=== PATIENT | male | born 1975 | race Caucasian/White ===

== ENCOUNTER 2020-05-19 15:02 | Outpatient (REF) | payer OTHER, SELFPAY ==
[2020-05-19 16:41] LABS: Glucose Urine UA NEG (NEG); Leukocyte Esterase Urine NEG (NEG); Nitrite Urine NEG (NEG); PH 6.5 (5.0-8.0); Specific Gravity - Urine 1.015 (1.005-1.025); Urine Blood NEG (NEG); Urine Ketones NEG (NEG); Urine Protein NEG (NEG-TRACE)
[2020-05-19 16:51] LABS: Appearance Urine CLEAR; Color Urine YELLOW
[2020-05-19 17:06] LABS: Alanine Aminotransferase 24 U/L (0-40); Albumin Level 4.5 g/dL (3.5-5.0); Alkaline Phosphatase 73 U/L (39-117); Anion Gap 14 (12-20); Aspartate Amino Transferase 20 U/L (5-37); Bilirubin Total 0.7 mg/dL (0.0-1.0); Blood Urea Nitrogen 12 mg/dL (9-16); Calcium 8.8 mg/dL (8.4-10.2); Carbon Dioxide 28 mmol/L (22-29); Chloride 102 mmol/L (96-108); Cholesterol 224 mg/dL; Estimated Glomerular Filt Rate > 60; Glucose Fasting 81 mg/dL (60-99); HDL Cholesterol 73 mg/dL; LDL Cholesterol Calculated 137 mg/dl; Potassium 3.9 mmol/l (3.3-5.1); Sodium 140 mmol/L (135-145); Total Protein 7.3 g/dL (6.5-8.0); Triglycerides 71 mg/dL
[2020-05-19 17:27] LABS: Thyroid Stimulating Hormone 0.95 mIU/mL (0.32-4.0)
[2020-05-20 05:33] LABS: Estimated Average Glucose 97 mg/dL
== END 2020-05-19 15:03 | disposition home or self-care (01) ==
LOC: HO.HMGCLDS 15:02
PROVIDERS: PCP Internal Medicine; Visit Provider Internal Medicine
DX: R73.9 Hyperglycemia, unspecified (principal); Z00.00 Encounter for general adult medical examination without abnormal findings; F41.9 Anxiety disorder, unspecified
CPT/HCPCS: 80053; 80061; 81003; 83036; 84443

== ENCOUNTER 2020-07-28 13:34 | Outpatient (REF) | payer OTHER, SELFPAY | END 2020-07-28 13:35 | disposition home or self-care (01) | LOC: HO.LAB 13:34 | PROVIDERS: PCP Internal Medicine; Visit Provider Internal Medicine | DX: Z20.828 Contact with and (suspected) exposure to other viral communicable diseases (principal) | CPT/HCPCS: C9803; U0003 ==

== ENCOUNTER 2021-05-18 07:34 | Outpatient (REF) | payer OTHER, SELFPAY ==
[2021-05-18 11:34] LABS: Appearance Urine CLEAR; Color Urine YELLOW; Glucose Urine UA NEG (NEG); Leukocyte Esterase Urine NEG (NEG); Nitrite Urine NEG (NEG); Specific Gravity - Urine 1.015 (1.005-1.025); Urine Blood NEG (NEG); Urine Ketones NEG (NEG); Urine Protein NEG (NEG-TRACE)
[2021-05-18 11:43] LABS: RBC Urine 0 /HPF (0); WBC Urine 0 /HPF (0-4)
[2021-05-18 11:44] LABS: Amorphous Sediment Urine 1+ /LPF
[2021-05-18 11:47] LABS: Alanine Aminotransferase 26 U/L (0-40); Albumin Level 4.1 g/dL (3.5-5.0); Alkaline Phosphatase 86 U/L (39-117); Anion Gap 9 (12-20); Aspartate Amino Transferase 20 U/L (5-37); Bilirubin Total 0.4 mg/dL (0.0-1.0); Blood Urea Nitrogen 19 mg/dL (9-16); Calcium 9.3 mg/dL (8.4-10.2); Carbon Dioxide 27 mmol/L (22-29); Chloride 110 mmol/L (96-108); Cholesterol 210 mg/dL; Estimated Glomerular Filt Rate > 60; Glucose Fasting 117 mg/dL (60-99); HDL Cholesterol 61 mg/dL; LDL Cholesterol Calculated 125 mg/dl; Potassium 4.3 mmol/L (3.3-5.1); Sodium 142 mmol/L (135-145); Total Protein 6.8 g/dL (6.5-8.0); Triglycerides 122 mg/dL
== END 2021-05-18 07:35 | disposition home or self-care (01) ==
LOC: HO.HMGCLDS 07:34
PROVIDERS: PCP Internal Medicine; Visit Provider Internal Medicine
DX: Z00.00 Encounter for general adult medical examination without abnormal findings (principal); E78.5 Hyperlipidemia, unspecified
CPT/HCPCS: 36415; 80053; 80061; 81001

== ENCOUNTER 2021-11-14 14:33 | Outpatient (REF) | payer OTHER, SELFPAY ==
[2021-11-14 17:08] LABS: Alanine Aminotransferase 27 U/L (0-40); Albumin Level 4.2 g/dL (3.5-5.0); Alkaline Phosphatase 86 U/L (39-117); Anion Gap 13 (12-20); Aspartate Amino Transferase 24 U/L (5-37); Bilirubin Total 0.9 mg/dL (0.0-1.0); Blood Urea Nitrogen 11 mg/dL (9-16); Calcium 9.3 mg/dL (8.4-10.2); Carbon Dioxide 27 mmol/L (22-29); Chloride 106 mmol/L (96-108); Estimated Glomerular Filt Rate > 60; Glucose Fasting 80 mg/dL (60-99); Potassium 3.8 mmol/L (3.3-5.1); Sodium 142 mmol/L (135-145); Total Protein 7.1 g/dL (6.5-8.0)
[2021-11-14 17:17] LABS: Estimated Average Glucose 100 mg/dL; Hemoglobin A1c % 5.1 %
== END 2021-11-14 14:34 | disposition home or self-care (01) ==
LOC: HO.HMGCLDS 14:33
PROVIDERS: PCP Internal Medicine; Visit Provider Internal Medicine
DX: Z00.00 Encounter for general adult medical examination without abnormal findings (principal); R73.9 Hyperglycemia, unspecified
CPT/HCPCS: 36415; 80053; 83036

== ENCOUNTER 2022-05-28 14:37 | Outpatient (REF) | payer OTHER, SELFPAY ==
[2022-05-28 16:34] LABS: Hematocrit 45.1 % (42.0-52.0); Hemoglobin 15.5 g/dl (14.0-18.0); Mean Corpuscular HGB Conc 34.4 g/dl (31.0-36.0); Mean Corpuscular Hemoglobin 30.4 pg (27.0-33.0); Mean Corpuscular Volume 88.4 fL (80.0-98.0); Mean Platelet Volume 9.8 fL (9.4-12.4); Platelet Count 231 X10*3/uL (160-400); Red Cell Distribution Width 12.8 % (11.0-16.0)
[2022-05-28 16:40] LABS: Estimated Average Glucose 105 mg/dL; Hemoglobin A1c % 5.3 %
[2022-05-28 16:43] LABS: Alanine Aminotransferase 31 U/L (0-40); Albumin Level 4.4 g/dL (3.5-5.0); Alkaline Phosphatase 99 U/L (39-117); Anion Gap 12 (12-20); Aspartate Amino Transferase 24 U/L (5-37); Bilirubin Total 0.6 mg/dL (0.0-1.0); Blood Urea Nitrogen 12 mg/dL (9-16); Calcium 9.3 mg/dL (8.4-10.2); Carbon Dioxide 28 mmol/L (22-29); Chloride 103 mmol/L (96-108); Cholesterol 229 mg/dL; Estimated Glomerular Filt Rate > 60; Glucose Fasting 91 mg/dL (60-99); HDL Cholesterol 74 mg/dL; LDL Cholesterol Calculated 135 mg/dl; Potassium 3.8 mmol/L (3.3-5.1); Sodium 139 mmol/L (135-145); Total Protein 7.3 g/dL (6.5-8.0); Triglycerides 104 mg/dL
== END 2022-05-28 14:38 | disposition home or self-care (01) ==
LOC: HO.HMGCLDS 14:37
PROVIDERS: PCP Internal Medicine; Visit Provider Internal Medicine
DX: E78.5 Hyperlipidemia, unspecified (principal); R73.9 Hyperglycemia, unspecified
CPT/HCPCS: 36415; 80053; 80061; 83036; 85027

== ENCOUNTER 2022-08-24 08:18 | Day surgery (SDC) | payer OTHER, SELFPAY ==
--- NOTE | 2022-08-23 10:59 | HO.ANESPROP2 ---
Documented by User: Karyna Young NP 08/23/22 11:00 HPI - Anesthesia Eval Consult details Narrative: 46yo M for Colonoscopy PMFSH Active Problems Active Problems: All Active Problems (Updated 04/18/22 @ 12:43 by Giulia Latham MD) Congenital hypertrophy of retinal pigment epithelium (Acute) FHx: colonic polyps (Acute) Hyperglycemia (Acute) Hyperlipemia (Acute) Annual physical exam (Acute) Past Medical History Medical History Annual physical exam Anxiety Hyperglycemia Hyperlipemia Family History Family History Father Factor V Leiden Stroke Mother CVD (cardiovascular disease) Paternal Uncle Type 2 diabetes mellitus Surgical History Surgical History No pertinent past surgical history Social History Social History 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, 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, 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 Tobacco Use Status: Never used Tobacco e-Cigarette/Vaping Use: Never Used Use of substances other than those prescribed or required for medical reasons: No Are you DNR?: No Advance Directives: No Advance Directives Information Provided: Yes Current occupational status: employed Cognitive needs: No Hearing needs: No Vision needs: Yes Meds Allergies Allergy/AdvReac Type Severity Reaction Status Date / Time amoxicillin [Augmentin] Allergy Unknown hives Verified 06/01/22 11:32 clavulanic acid [Augmentin] Allergy Unknown hives Verified 06/01/22 11:32 oxycodone Allergy Unknown hives Verified 06/01/22 11:32 Exam Exam Date and Time: August 23, 2022 1059 Pertinent Lab Results Pertinent Lab Results: Laboratory Tests 05/28/22 05/28/22 14:44 14:44 WBC 6.0 Hgb 15.5 Hct 45.1 Plt Count 231 Sodium 139 Potassium 3.8 Chloride 103 Carbon Dioxide 28 BUN 12 Creatinine 0.91 Assessment and Plan Assessment Anesthesia Assessment: Chart Reviewed Documented by User: Priyanka Caba MD 08/24/22 09:57 PMFSH Past Medical History Medical History Annual physical exam Anxiety Hyperglycemia Hyperlipemia Family History Family History Father Factor V Leiden Stroke Mother CVD (cardiovascular disease) Paternal Uncle Type 2 diabetes mellitus Family history of problems with anesthesia: No Surgical History Surgical History No pertinent past surgical history History of Problems with Anesthesia: No Social History Social History 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, 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, 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 Tobacco Use Status: Never used Tobacco e-Cigarette/Vaping Use: Never Used Use of substances other than those prescribed or required for medical reasons: No Are you DNR?: No Advance Directives: No Advance Directives Information Provided: Yes Current occupational status: employed Cognitive needs: No Hearing needs: No Vision needs: Yes Meds Allergies Allergy/AdvReac Type Severity Reaction Status Date / Time amoxicillin [Augmentin] Allergy Unknown hives Verified 06/01/22 11:32 clavulanic acid [Augmentin] Allergy Unknown hives Verified 06/01/22 11:32 oxycodone Allergy Unknown hives Verified 06/01/22 11:32 Exam Airway Mallampati Class: II TM Dist: >3cm Heart: rrr Lungs: cta Assessment and Plan Assessment Anesthesia Assessment: Anesthesia Plan Discussed Final Anesthetic Review Family History of Problems with Anesthesia: No History of Problems with Anesthesia: No NPO: Yes ASA Class: II Final Preanesthetic Review: No Changes in Pt Med Stat, Meds/Allgs Chart Reviewed, Consent Obtained/Reviewed and Anes Risks/Benef Reviewed Patient Risk: Low Procedure Risk: Low Anesthetic Plan Anesthetic Plan: MAC: and Agree w/ Assess. and Plan Disposition: Standard PACU
[2022-08-24 08:49] VITALS: BP 144/88; PULSE 58; RESP 16; TEMP 36.7; O2SAT 97; BMI 32.5
--- NOTE | 2022-08-24 09:00 | MHC.SHP ---
Pre-Procedural Eval Section A Date of Service: 08/24/22 The patient is an INPATIENT: No The History & Physical has been completed within 30 days and I have reviewed it.: No Section B Chief Complaint: Family history of colonic polyps,screening Details of Present Illness: screening Relevant Family History (Specify if Yes): Yes Relevant Social History: None Present Medications: see Short Stay Collaborative assessment Medical History: Significant History (Anxiety Hyperglycemia Hyperlipemia) History of Previous Operations: No relevant previous surgery Allergies: Allergies Allergy/AdvReac Type Severity Reaction Status Date / Time amoxicillin [Augmentin] Allergy Unknown hives Verified 06/01/22 11:32 clavulanic acid [Augmentin] Allergy Unknown hives Verified 06/01/22 11:32 oxycodone Allergy Unknown hives Verified 06/01/22 11:32 Review of Systems Sugical H&P ROS: Negative: Constitution, Cardiovascular, Respiratory and Gastrointestinal Exam Surgical H&P Exam: Normal: Heart, Normal: Lungs, Normal: Extremities and Normal: Abdomen Plan Diagnosis/Plan: Unchanged I have reviewed the history and physical and performed a pertinent physical examination on my patient. No changes have occurred unless specified. Time Spent With Patient Time: Total time managing care of this patient today ____ minutes.
[2022-08-24] MEDS: Lactated Ringers 1,000 ML 100 ML IVCONT (09:19)
--- NOTE | 2022-08-24 09:43 | P.BOP_ITS ---
Brief Operative Note Date of Service: 08/24/22 Pre-op diagnosis: Colon cancer screening, family history of colon polyps (Mom in her 50's) Post-op diagnosis: other (Diverticulosis, hemorrhoids) Procedure: COLONOSCOPY TILL CECUM Surgeon: Yasir Light MD Anesthesia: MAC Was an Software Systems Analyst used for this Procedure?: Yes Software Systems Analyst: Daisha Hurt Estimated blood loss (mL): 0 Pathology: none sent Condition: stable Disposition: PACU
--- NOTE | 2022-08-24 09:43 | W.PM.OPN ---
Operative Note Operative Note Date of Service: 08/24/22 Narrative: Pre-op diagnosis: Colon cancer screening, family history of colon polyps (Mom in her 50's) Post-op diagnosis:?other (Diverticulosis, hemorrhoids) Surgeon: Yasir Light MD Anesthesia:?MAC COLONOSCOPY TILL CECUM Consent: Indications for the procedure and potential complications of bleeding, perforation, reaction to medications and missed diagnosis were discussed with the patient and informed consent was obtained. Instrument: Olympus PCF H 190 L variable stiffness pediatric colonoscope Monitoring: Vital signs and clinical assessment, intermittent blood pressure monitoring, continuous EKG monitoring, Pulse oximetry and Carbon Dioxide monitoring were done throughout the procedure. Colon withdrawl time was 11 minutes. Procedure: The patient was placed in the left lateral decubitis position and pre-procedure medications were administered. After a digital rectal examination of the ano-rectum, the video colonoscope was inserted into the rectum and advanced through the colon to the cecum. The colonoscope was slowly withdrawn in a retrograde panoramic fashion and the colon mucosa was carefully examined including a retroflexed view of the rectum. Findings and interventions are described below. Procedure Difficulty: Colon was long and there was some loop formation. Pt was placed in the supine position and LLQ pressure was applied to intubate the cecum Findings: Terminal Ileum: Not evaluated Cecum: Normal Ascending Colon: Normal Transverse Colon: Normal Descending Colon: Normal Sigmoid Colon: Moderate diverticulosis Rectum: Normal Ano-rectum: Moderate internal hemorrhoids Colon preparation: Excellent Impression and Post Procedure Diagnosis: Colonoscopy Findings: No polyps were detected Moderate diverticulosis seen in the sigmoid colon Moderate hemorrhoids on retroflexed exam. Plan: Patient has an appointment on 09/05/22 in the [facility] with Dr Latham. Repeat Colonoscopy in 5 yrs (due to fammily hx of colon polyps) Above findings were reviewed with the patient and diverticulosis handout was given in the discharge area
[2022-08-24 10:20] VITALS: BP 110/73; PULSE 56; RESP 17; TEMP 36.9; O2SAT 98
[2022-08-24 10:35] VITALS: BP 118/76; PULSE 69; RESP 18; TEMP 36.9; O2SAT 96
== END 2022-08-24 11:38 | disposition home or self-care (01) ==
PROVIDERS: PCP Internal Medicine; Visit Provider Internal Medicine Gastroenterology
PROC: 0DJD8ZZ Inspection of Lower Intestinal Tract, Via Natural or Artificial Opening Endoscopic (ICD-10-PCS; CPT 45378; principal; 2022-08-24 09:30)
DX: Z12.11 Encounter for screening for malignant neoplasm of colon (principal); Z83.71 Family history of colonic polyps; K57.30 Diverticulosis of large intestine without perforation or abscess without bleeding; K64.8 Other hemorrhoids; R73.9 Hyperglycemia, unspecified; E78.5 Hyperlipidemia, unspecified; Q14.1 Congenital malformation of retina; F41.1 Generalized anxiety disorder; Z88.1 Allergy status to other antibiotic agents; Z88.8 Allergy status to other drugs, medicaments and biological substances
CPT/HCPCS: 45378; J2250

== ENCOUNTER 2023-02-15 12:41 | Outpatient (AMB) | payer OTHER, SELFPAY ==
--- NOTE | 2023-02-15 13:00 | MHC.PC.OV ---
Vital Signs 02/15/23 13:04 Height 6 ft 3 in Weight 270 lb BMI 33.7 BP 124/78 Blood Pressure Location Lt brachial Position Sitting Pulse 60 Pulse Source Pulse Oximeter Pulse Oximetry (%) 98 Oxygen Delivery Method Room Air Intake Visit Reasons: thumb on right hand swollen Intake Note: Pt is ere today for a sick visit. Pt c/o R thumb pain and swelling for last few months. Pt states that the pain got worst over the summer. Pt also states that he had R shoulder pain and he is not sure if that is connected. Allergies amoxicillin [Augmentin] Allergy (Unknown, Verified 02/15/23 13:10) hives clavulanic acid [Augmentin] Allergy (Unknown, Verified 02/15/23 13:10) hives oxycodone Allergy (Unknown, Verified 02/15/23 13:10) hives Medication List - Last Reconciled 02/15/23 by Reshma Camarena MD ketoconazole 2% 1 appl topical DAILY meloxicam 15 mg PO DAILY Tobacco use date assessed: 02/15/23 Dental Screening Dental Screen Date: 02/15/23 Did you have a dental visit in the last 12 months?: Yes Did you have a dental problem in the last 6 months where you did not have access to dental care?: No Was dental information given to patient?: Patient has dentist HPI thumb on right hand swollen HPI Details Pt c/o right wrist and base of right thumb pain worse in the morning also at night. The pain got worse in the summer since patient start playing golf 3 times a week. Patient also complains of chronic right shoulder pain on and off since he had injured it in high school. The pain is worse when patient is trying to reach overhead and playing golf. 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 How often do you have a drink containing alcohol?: 2-3 times a week 2. How many drinks containing alcohol do you have on a typical day when you are drinking?: 1 or 2 3. How often do you have six or more drinks on one occasion?: Never Total Score: 3 SILVER-7 AMB Questionnaire SILVER-7 Date SILVER - 7 assessed: 11/27/21 Source: Developed by Drs. Collins Saldaña, Marya Ascencio, Rudy Dowd and colleagues, with an educational ximena from [employer]. Review of Systems Const All systems reviewed & are unremarkable except as noted in HPI and below Reports no additional complaints ENT Reports no additional complaints Card Reports no additional complaints Physical exam (Primary Care) Vital Signs: Last Vital Signs Pulse 60 02/15/23 13:04 BP 124/78 02/15/23 13:04 Pulse Ox 98 02/15/23 13:04 Oxygen Delivery Method Room Air 02/15/23 13:04 BMI result Body Mass Index 33.7 Tobacco/Smoking Status: Tobacco use Status Tobacco use date assessed 02/15/23 02/15/23 13:12 Patient Tobacco Use Status Never used Tobacco 02/15/23 13:12 e-Cigarette/Vaping Use Never Used 02/15/23 13:00 Thrive Assessment: Date of Thrive Assessment Date Thrive assessed 11/27/21 02/15/23 13:00 Const General: no acute distress Resp Effort & Inspection: normal respiratory effort Auscultation: clear to auscultation bilaterally Cardio Rhythm: regular rhythm Heart sounds: S1 normal heart sound present and S2 normal heart sound present Extrem Other: Decreased range of motion of the right shoulder and right wrist, there is soft tissue swelling at the base of right thumb and tenderness over PIP and MCP joint Assessment and Plan Assessment & Plan (1) Shoulder pain, right: Code(s): M25.511 - Pain in right shoulder Plan: For chronic right shoulder pain x-ray will be obtained patient will be referred to physical therapy and orthopedic surgeon (2) Pain of right thumb: Code(s): M79.644 - Pain in right finger(s) Plan: For right thumb and wrist pain x-ray will be obtained meloxicam 15 mg daily for 10 days is prescribed and patient was giving a wrist splint to wear at night. If his symptoms persist he will be referred to ortho for cortisone injection Orders: Orders XR shoulder RT min 2V Today M25.511 - Pain in right shoulder, M79.644 - Pain in right finger(s) PT Evaluation and Treatment Today M25.511 - Pain in right shoulder XR wrist RT 2V Today M25.531 - Pain in right wrist Referrals Orthopedics Referral M25.511 - Pain in right shoulder, M79.644 - Pain in right finger(s) Medications: New meloxicam 15 mg PO DAILY 14 tabs 0RF Coding Level of Care Code Est Pt Level 3 (99073) Diagnoses Shoulder pain, right M25.511 Pain of right thumb M79.644
[2023-02-15 13:04] VITALS: BP 124/78; PULSE 60; O2SAT 98; BMI 33.7
== END 2023-02-15 13:54 | disposition home or self-care (01) ==
PROVIDERS: PCP Internal Medicine; Visit Provider Internal Medicine
DX: M25.511 Pain in right shoulder (principal); M79.644 Pain in right finger(s)
CPT/HCPCS: 99213

== ENCOUNTER 2023-02-15 13:45 | Outpatient (REF) | payer OTHER, SELFPAY ==
--- NOTE | ~2023-02-15 | XR_ITS ---
EXAMINATION: XR HAND, RIGHT CLINICAL INFORMATION: Pain. COMPARISON: None available. TECHNIQUE: PA, lateral, and oblique views of the right hand. FINDINGS: No evidence of acute fractures or subluxation. Minimal joint space narrowing and subcortical sclerosis of the first carpometacarpal space. No erosions or chondrocalcinosis. No unexpected radiopaque foreign bodies. XR/XR hand RT min 3V IMPRESSION: 1. No acute fractures or subluxation. 2. Minimal degenerative osteoarthritis of the first carpometacarpal space.
--- NOTE | ~2023-02-15 | XR_ITS ---
EXAMINATION: XR SHOULDER, RIGHT CLINICAL INFORMATION: Pain in right shoulder COMPARISON: None available. TECHNIQUE: AP external rotation, Grashey, scapular Y, and axillary views of the right shoulder. FINDINGS: The bones and soft tissues are normal. No fracture. Glenohumeral and acromioclavicular alignment is anatomic with normal joint space. No abnormal soft tissue calcifications. XR/XR shoulder RT min 2V IMPRESSION: No bony abnormality.
== END 2023-02-15 13:46 | disposition home or self-care (01) ==
LOC: HO.HMGCX 13:45
PROVIDERS: PCP Internal Medicine; Visit Provider Internal Medicine
DX: M25.511 Pain in right shoulder (principal); M79.644 Pain in right finger(s); M25.531 Pain in right wrist
CPT/HCPCS: 73030; 73130

== ENCOUNTER 2023-03-18 10:00 | Outpatient (RCR) | payer OTHER, SELFPAY ==
--- NOTE | 2023-03-11 15:08 | MHC.PT.EP ---
[facility] [place] Office [place] [facility] [place] Office [address] Jayshree Ortega [address] [phone] F: [phone] F: [phone] F: [phone] F: [phone] Physical Therapy Plan of Care Date of Evaluation: Date of Surgery: Diagnosis: Pain in R shoulder Assessment: 47 y/o R-hand dominant male referred to PT with pain in R shoulder. S/s consistent with RTC tendonpathy and painful arc resulting in pain and difficulty with reaching overhead, grooming, throwing a ball, playing basketball, golf, and holding objects in R hand. 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 Recommend PT 2x/ week for 5 weeks to address impairments, implement HEP, and optimize functional mobility. ?whether he would benefit from OT consult d/t wrist/ thumb pain and ?CMC arthritis). 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 Manual therapy to restore motion and function. Therapeutic exercise to improve strength and flexibility. Neuromuscular re-education for posture and balance. Therapeutic activities to return to functional activities of daily living. Electronically signed by: Leilani Pritchett PT Please sign and return to therapist. Thank you for your referral.
--- NOTE | 2023-04-25 14:47 | MHC.PT.DC ---
[facility] [place] Office [place] Office [place] Office [address] Jayshree Ortega [address] [phone] F: [phone] F: [phone] F: [phone] F: [phone] Physical Therapy Discharge Report Diagnosis: Pain in R shoulder Date of Surgery: Date of Evaluation: 03/11/23 Date of Discharge: Treatments to Date: 2 Cancellations to Date: 0 No Shows to Date: 0 Discharge Status: Independent with HEP Discharge Summary: Pt will f/u with ortho and look into OT for his wrist pain. He is I with shoulder HEP and no further questions at this time. Electronically signed by: Leilani Pritchett PT Please sign and return to therapist. Thank you for your referral.
== END 2023-04-25 14:48 | disposition home or self-care (01) ==
LOC: HO.PTCHIC 10:00
PROVIDERS: PCP Internal Medicine; Visit Provider Internal Medicine
DX: M25.511 Pain in right shoulder (principal)
CPT/HCPCS: 97110; 97161

== ENCOUNTER 2023-04-02 14:52 | Outpatient (AMB) | payer OTHER, SELFPAY ==
[2023-04-02 15:03] VITALS: BMI 33.7
--- NOTE | 2023-04-02 15:03 | MHC.OFFVIS ---
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 States his pain is by his CMC joint. States pain started about 6-8 months ago . States it is worse in the morning. Feels tightness in his index, middle and ring finger. At times he has increase of numbness at night time. Reports he has trouble with gripping, punching and twisting of wrist. Also mentioned he golfs 4x a week. Seen with his PCP who Rx'd a thumb spica brace which provides temporary relief. 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 He complains of pain at the base of his thumb and his wrist as well as radial sided wrist pain, onset ~7 months ago. He complains of pain with pinching, gripping, and twisting activities, and he says this is worse in the mornings. He also complains of some tightness in his index, middle, and ring fingers, and occasional numbness which is worse at night. He denies any issues with his small finger He golfs 4x weekly and has been wearing a thumb splint that his PCP gave him. 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 Cognitive needs: No Hearing needs: No Vision needs: Yes Review of Systems Const All systems reviewed & are unremarkable except as noted in HPI and below Physical Exam Vital Signs: BMI result Body Mass Index 33.7 Const General: cooperative, healthy appearing and no acute distress Orientation/consciousness: patient oriented x3 HEENT Head: Yes normocephalic and Yes atraumatic Eyes EOM: EOMs intact bilaterally Resp Effort & Inspection: normal respiratory effort and able to speak in complete sentences Cardio Jugular venous distension: no JVD Skin General skin exam: turgor normal Rashes: no rashes Neuro General: patient oriented x3 Extrem Other: Evaluation of Right Upper Extremity: The patient is alert, oriented, and in no acute distress Neuro: Median, Ulnar, Radial nerves motor and sensory intact and sensation is normal to the tips of all digits Vascular: Cap refill brisk ROM: He can make a fist and extend all his digits No locking or catching Skin: No lacerations or abrasions. General: No Ecchymosis. No Erythema or evidence of infection. Tender over the basal joint Tender in line with the 1st dorsal compartment tendons Positive Jim test on the right Negative Jim test on the left Radiographs: 3 views of the right hand from 02/15/23 were reviewed by me today in clinic. They show no fractures or dislocations. He has some early basal joint arthritis. Psych Appearance: grossly normal Affect: normal affect Attitude: cooperative Office Procedures Fracture Care Details: No fracture, injection Fracture Billing Code: Fracture Billing Code Results Reviewed Results Reviewed: 04/02/23 15:27 Lidocaine HCl 1 % [Xylocaine 1 %] 2 ml .ROUTE .STK-MED ONE dexAMETHasone sod phosphate [Decadron] 4 mg .ROUTE .STK-MED ONE Assessment & Plan Assessment & Plan (1) Osteoarthritis of carpometacarpal joint of right thumb: Code(s): M18.11 - Unilateral primary osteoarthritis of first carpometacarpal joint, right hand (2) De Quervain's tenosynovitis, right: Code(s): M65.4 - Radial styloid tenosynovitis [de Quervain] Plan Assessment & Plan: 1. Right De Quervain's Tenosynovitis Positive Jim test 2. Right Basal joint osteoarthritis I educated him about these conditions It is unclear if his primary pain generator is De Quervain's or his Basal joint OA I discussed operative and non-operative treatment options I recommend a steroid injection today to see if this alleviates his pain, and the patient is in agreement I discussed activity modification, he is to limit or avoid any heavy or repetitive pinching or gripping activities He was fitted for a comfort cool brace to wear with daily activity He is an avid golfer and goes 3-4x weekly. He has been icing after golfing and I recommend he continue this if this gives him relief Injection #1: The risks and benefits of a steroid injection including but not limited to risk of damage to blood vessels, nerves, tendons, infection, skin bleaching, failure to improve symptoms, increased pain, and possible need for further injections or other intervention were discussed with the patient and the patient wishes to proceed with the steroid injection. Once consent was obtained, I sterilely prepped the area over the 1st dorsal compartment of the right thumb. I then injected the 1st dorsal compartment with a combination of 1 mL of dexamethasone (4mg/ml), and 1% lidocaine. The patient tolerated the procedure well with no complications and reports having almost complete relief of his symptoms following this injection If the patient continues to have pain 6-8 weeks following this injection, they may call to schedule appointment to discuss alternative treatment options He can follow up prn. If he continues to have pain he may benefit from a basal joint steroid injection, which we may discuss at his next appointment Scribed for Summer Santiago MD by Jose Roberto Godinez, medical service technician, on 04/02/23 at 3:30 PM, EST. Coding Level of Care Code New Pt Level 3 (83159) Diagnoses Osteoarthritis of carpometacarpal joint of right thumb M18.11 De Quervain's tenosynovitis, right M65.4 CPT Codes Fracture Care - Fracture Billing Code: Fracture Billing Code ([id number])
== END 2023-04-02 15:52 | disposition home or self-care (01) ==
PROVIDERS: PCP Internal Medicine; Visit Provider Orthopaedic Surgery
DX: M18.11 Unilateral primary osteoarthritis of first carpometacarpal joint, right hand (principal); M65.4 Radial styloid tenosynovitis [de Quervain]
CPT/HCPCS: 20550; 99204

== ENCOUNTER → 2023-04-02 14:52 | Outpatient (BNVA) | payer OTHER, SELFPAY | PROVIDERS: PCP Internal Medicine; Visit Provider Orthopaedic Surgery | DX: M65.4 Radial styloid tenosynovitis [de Quervain] (principal); M18.11 Unilateral primary osteoarthritis of first carpometacarpal joint, right hand | CPT/HCPCS: 20550; J1100 ==

== ENCOUNTER 2023-05-23 15:01 | Outpatient (REF) | payer OTHER, SELFPAY ==
[2023-05-23 16:29] LABS: Alanine Aminotransferase 19 U/L (0-40); Albumin Level 4.2 g/dL (3.5-5.0); Alkaline Phosphatase 130 U/L (39-117); Anion Gap 13 (12-20); Aspartate Amino Transferase 19 U/L (5-37); Bilirubin Total 0.5 mg/dL (0.0-1.0); Blood Urea Nitrogen 13 mg/dL (9-16); Calcium 9.2 mg/dL (8.4-10.2); Carbon Dioxide 25 mmol/L (22-29); Chloride 104 mmol/L (96-108); Cholesterol 191 mg/dL (<200); Estimated Glomerular Filt Rate > 60; Glucose Fasting 87 mg/dL (60-99); HDL Cholesterol 52 mg/dL (>40); LDL Cholesterol Calculated 127 mg/dL (<100); Potassium 3.9 mmol/L (3.3-5.1); Sodium 138 mmol/L (135-145); Total Protein 7.7 g/dL (6.5-8.0); Triglycerides 60 mg/dL (<150)
[2023-05-23 16:31] LABS: Basophils Absolute Auto 0.1 X10*3/uL (0.0-0.2); Basophils Percent Auto 0.7 % (0-2); Eosinophils Absolute Auto 3.4 X10*3/uL (0.0-0.4); Eosinophils Percent Auto 31.4 % (0-4); Hematocrit 45.7 % (42.0-52.0); Hemoglobin 15.4 g/dl (14.0-18.0); Imm Gran Abs Auto 0.06 X10*3/uL (0.00-0.03); Imm Gran Pct Auto 0.6 % (0.0-0.4); Lymphocytes Absolute Auto 1.8 X10*3/uL (1.2-4.9); Lymphocytes Percent Auto 17.1 % (20-40); MANUAL DIFF FLAG SCAN; Mean Corpuscular HGB Conc 33.7 g/dl (31.0-36.0); Mean Corpuscular Hemoglobin 30.1 pg (27.0-33.0); Mean Corpuscular Volume 89.3 fL (80.0-98.0); Mean Platelet Volume 10.4 fL (9.4-12.4); Monocytes Absolute Auto 0.7 X10*3/uL (0.1-1.2); Monocytes Percent Auto 6.3 % (2-11); Neutrophils Absolute Auto 4.7 x10*3/uL (2.0-8.3); Neutrophils Percent Auto 43.9 % (45-73); Platelet Count 252 X10*3/uL (160-400); Red Blood Count 5.12 X10*6/uL (4.60-5.80); Red Cell Distribution Width 13.2 % (11.0-16.0); SCAN SMEAR FLAG 1; White Blood Count 10.7 X10*3/uL (4.8-10.8)
[2023-05-23 16:44] LABS: SLIDE REVIEW VERIFIED
== END 2023-05-23 15:02 | disposition home or self-care (01) ==
LOC: HO.HMGCLDS 15:01
PROVIDERS: PCP Internal Medicine; Visit Provider Internal Medicine
DX: Z00.00 Encounter for general adult medical examination without abnormal findings (principal); E78.5 Hyperlipidemia, unspecified
CPT/HCPCS: 36415; 80053; 80061; 85025

== ENCOUNTER 2023-06-03 07:54 | Outpatient (AMB) | payer OTHER, SELFPAY ==
--- NOTE | 2023-06-03 08:03 | A.OFFPC_ITS ---
Vital Signs 06/03/23 08:04 Height 6 ft 3 in Weight 260 lb BMI 32.5 BP 132/82 Blood Pressure Location Lt brachial Position Sitting Pulse 73 Pulse Source Pulse Oximeter Pulse Oximetry (%) 97 Oxygen Delivery Method Room Air Intake Visit Reasons: annual PE Intake Note: Pt is here today for PE. Allergies amoxicillin [Augmentin] Allergy (Unknown, Verified 06/03/23 08:07) hives clavulanic acid [Augmentin] Allergy (Unknown, Verified 06/03/23 08:07) hives oxycodone Allergy (Unknown, Verified 06/03/23 08:07) hives Medication List - Last Reconciled 06/03/23 by Reshma Camarena MD ketoconazole 2% 1 appl topical DAILY Tobacco use date assessed: 06/03/23 HPI annual PE HPI Details Patient presents for physical PFSH Medical History Hyperlipemia Annual physical exam Hyperglycemia Anxiety Surgical History (Updated 06/03/23 @ 09:58 by Reshma Camarena MD) No pertinent past surgical history Family History Father Factor V Leiden Stroke Mother CVD (cardiovascular disease) Paternal Uncle Type 2 diabetes mellitus Social History 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 Collins Saldaña, Marya Ascencio, Rudy Dowd and colleagues, with an educational ximena from [employer]. Review of Systems Const All systems reviewed & are unremarkable except as noted in HPI and below Reports no additional complaints Eyes Reports no additional complaints ENT Reports no additional complaints Card Reports no additional complaints Resp Reports no additional complaints GI Reports no additional complaints Reports no additional complaints Physical exam (Primary Care) Vital Signs: Last Vital Signs Pulse 73 06/03/23 08:04 BP 132/82 06/03/23 08:04 Pulse Ox 97 06/03/23 08:04 Oxygen Delivery Method Room Air 06/03/23 08:04 BMI result Body Mass Index 32.5 Tobacco/Smoking Status: Tobacco use Status Tobacco use date assessed 06/03/23 06/03/23 08:09 Patient Tobacco Use Status Never used Tobacco 06/03/23 08:04 e-Cigarette/Vaping Use Never Used 06/03/23 08:04 Thrive Assessment: Date of Thrive Assessment Date Thrive assessed 11/27/21 06/03/23 08:04 Const General: no acute distress HENMT Face and sinus: Yes normal facial exam Throat: Yes posterior oropharynx normal Resp Effort & Inspection: normal respiratory effort Auscultation: clear to auscultation bilaterally Cardio Rhythm: regular rhythm Heart sounds: S1 normal heart sound present and S2 normal heart sound present GI Inspection: Yes normal to inspection Palpation (GI): Soft to palpation Percussion: Yes normal to percussion Auscultation: normal bowel sounds Assessment and Plan Assessment & Plan (1) Hx of colonoscopy: Comment: 09/20 negative, recheck 5 yrs, FHx polyps Code(s): Z98.890 - Other specified postprocedural states (2) Annual physical exam: Code(s): Z00.00 - Encounter for general adult medical examination without abnormal findings Plan: Well-balanced diet regular physical activity discussed with the patient (3) Hyperlipemia: Code(s): E78.5 - Hyperlipidemia, unspecified Plan: Continue low-cholesterol diet (4) Hyperglycemia: Code(s): R73.9 - Hyperglycemia, unspecified Plan: Continue regular exercise and ADA diet weight loss, follow-up in 1 year with the blood work before Orders: Orders Comprehensive [place]. Panel Fast 365 Days E78.5 - Hyperlipidemia, unspecified, R73.9 - Hyperglycemia, unspecified, Z00.00 - Encounter for general adult medical examination without abnormal findings Lipid Panel 365 Days E78.5 - Hyperlipidemia, unspecified, R73.9 - Hyperglycemia, unspecified, Z00.00 - Encounter for general adult medical examination without abnormal findings Hemoglobin A1c 365 Days E78.5 - Hyperlipidemia, unspecified, R73.9 - Hyperglycemia, unspecified, Z00.00 - Encounter for general adult medical examination without abnormal findings Complete Blood Count Auto Diff 365 Days E78.5 - Hyperlipidemia, unspecified, R73.9 - Hyperglycemia, unspecified, Z00.00 - Encounter for general adult medical examination without abnormal findings Coding Level of Care Code Est Pt Prev Care 40-64y(29464) Diagnoses Hx of colonoscopy Z98.890 Annual physical exam Z00.00 Hyperlipemia E78.5 Hyperglycemia R73.9
[2023-06-03 08:04] VITALS: BP 132/82; PULSE 73; O2SAT 97; BMI 32.5
== END 2023-06-03 08:54 | disposition home or self-care (01) ==
PROVIDERS: Visit Provider Internal Medicine
DX: Z98.890 Other specified postprocedural states (principal); Z00.00 Encounter for general adult medical examination without abnormal findings; E78.5 Hyperlipidemia, unspecified; R73.9 Hyperglycemia, unspecified
CPT/HCPCS: 99396

== ENCOUNTER 2024-06-01 14:58 | Outpatient (REF) | payer OTHER, SELFPAY ==
[2024-06-01 16:10] LABS: MANUAL DIFF FLAG NO
[2024-06-01 16:18] LABS: Basophils Absolute Auto 0.1 X10*3/uL (0.0-0.2); Basophils Percent Auto 0.8 % (0-2); Eosinophils Absolute Auto 0.2 X10*3/uL (0.0-0.4); Eosinophils Percent Auto 2.8 % (0-4); Hematocrit 46.6 % (42.0-52.0); Imm Gran Abs Auto 0.04 X10*3/uL (0.00-0.03); Imm Gran Pct Auto 0.6 % (0.0-0.4); Lymphocytes Absolute Auto 1.7 X10*3/uL (1.2-4.9); Lymphocytes Percent Auto 26.5 % (20-40); Mean Corpuscular HGB Conc 34.3 g/dl (31.0-36.0); Mean Corpuscular Hemoglobin 30.9 pg (27.0-33.0); Mean Corpuscular Volume 90.1 fL (80.0-98.0); Mean Platelet Volume 10.4 fL (9.4-12.4); Monocytes Absolute Auto 0.6 X10*3/uL (0.1-1.2); Monocytes Percent Auto 8.6 % (2-11); Neutrophils Absolute Auto 3.9 x10*3/uL (2.0-8.3); Neutrophils Percent Auto 60.7 % (45-73); Platelet Count 247 X10*3/uL (160-400); Red Blood Count 5.17 X10*6/uL (4.60-5.80); Red Cell Distribution Width 13.2 % (11.0-16.0); White Blood Count 6.5 X10*3/uL (4.8-10.8)
[2024-06-01 16:28] LABS: Estimated Average Glucose 108 mg/dL; Hemoglobin A1C 146.7958 umol/L; Hemoglobin A1c % 5.4 % (<6.0); Total Hemoglobin (HGBA1C) 4183.2429 umol/L
[2024-06-01 16:53] LABS: Alanine Aminotransferase 39 U/L (0-40); Albumin Level 4.3 g/dL (3.5-5.0); Alkaline Phosphatase 99 U/L (39-117); Anion Gap 15 (12-20); Aspartate Amino Transferase 30 U/L (5-37); Bilirubin Total 0.5 mg/dL (0.0-1.0); Blood Urea Nitrogen 14 mg/dL (9-16); Calcium 9.4 mg/dL (8.4-10.2); Carbon Dioxide 25 mmol/L (22-29); Chloride 105 mmol/L (96-108); Cholesterol 218 mg/dL (<200); Estimated Glomerular Filt Rate > 60; Glucose Fasting 88 mg/dL (60-99); HDL Cholesterol 63 mg/dL (>40); LDL Cholesterol Calculated 133 mg/dL (<100); Potassium 3.7 mmol/L (3.3-5.1); Sodium 141 mmol/L (135-145); Total Protein 7.5 g/dL (6.5-8.0); Triglycerides 113 mg/dL (<150)
== END 2024-06-01 14:59 | disposition home or self-care (01) ==
LOC: HO.HMGCLDS 14:58
PROVIDERS: PCP Internal Medicine; Visit Provider Internal Medicine
DX: Z00.00 Encounter for general adult medical examination without abnormal findings (principal); R73.9 Hyperglycemia, unspecified; E78.5 Hyperlipidemia, unspecified
CPT/HCPCS: 36415; 80053; 80061; 83036; 85025

== ENCOUNTER 2024-06-04 07:48 | Outpatient (AMB) | payer OTHER, SELFPAY ==
[2024-06-04 08:09] VITALS: BP 120/80; PULSE 55; O2SAT 97; BMI 34.6
--- NOTE | 2024-06-04 08:09 | MHC.PC.OV ---
Vital Signs 06/04/24 08:09 Height 6 ft 3 in Weight 277 lb BMI 34.6 BP 120/80 Blood Pressure Location Lt brachial Position Sitting Pulse 55 Pulse Source Pulse Oximeter Pulse Oximetry (%) 97 Intake Visit Reasons: Annual PE Intake Note: Pt is here today for his PE Allergies amoxicillin [Augmentin] Allergy (Unknown, Verified 06/04/24 08:09) hives clavulanic acid [Augmentin] Allergy (Unknown, Verified 06/04/24 08:09) hives oxycodone Allergy (Unknown, Verified 06/04/24 08:09) hives Medication List - Last Reconciled 06/04/24 by Reshma Camarena MD ketoconazole 2% 1 appl topical DAILY Tobacco use date assessed: 06/04/24 Dental Screening Dental Screen Date: 06/04/24 Did you have a dental visit in the last 12 months?: Yes Did you have a dental problem in the last 6 months where you did not have access to dental care?: No Was dental information given to patient?: Patient has dentist HPI Annual PE HPI Details Pt presents for PE. He complains of persistent rash in groin area bilaterally. He has used ketoconazole cream which caused sensation of burning of the skin. 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 1. Little interest or pleasure in doing things: not at all 2. Feeling down, depressed, or hopeless: not at all 3. Trouble falling or staying asleep, or sleeping too much: not at all 4. Feeling tired or having little energy: not at all 5. Poor appetite or overeating: not at all 6. Feeling bad about yourself - or that you are a failure or have let yourself or your family down: not at all 7. Trouble concentrating on things, such as reading the newspaper or watching television: not at all 8. Moving or speaking so slowly that other people could have noticed. Or the opposite - being so fidgety or restless that you have been moving around a lot more than usual: not at all 9. Thoughts that you would be better off or of hurting yourself in some way: not at all Total score: 0 Depression Screening Interpretation: Negative Depression Screening Done: Yes 54588 - PHQ-9 Billing: Yes Source: Developed by Drs. Collins Saldaña, Marya Ascencio, Rudy Dowd and colleagues, with an educational ximena from [employer]. Thrive Questionnaire Date Thrive assessed: 06/04/24 I am a: Patient What is your living situation today?: I have a steady place to live Within the past 12 months, did the food you bought not last and you didn't have the money to get more?: Never true Within the past 12 months, did you worry whether your food would run out before you got money to buy more?: Never true Do you have trouble paying for medicines?: No Do you have trouble getting transportation to medical appointments?: No Do you have trouble paying your heating and electricity bill?: No Do you have trouble taking care of your child, family member or friend?: No Do you have trouble with day-to-day activities such as bathing, preparing meals, shopping, managing finances, etc.?: No Are you currently unemployed and looking for a job?: No Are you interested in more education?: No Please select the resources that you would like help with: None Currently or been in a relationship where the following occur: No concerns reported THRIVE Score: 0 AUDIT C Alcohol Use Questionnaire (AUDIT-C) 1. How often do you have a drink containing alcohol?: 2-3 times a week 2. How many drinks containing alcohol do you have on a typical day when you are drinking?: 1 or 2 3. How often do you have six or more drinks on one occasion?: Less than monthly Total Score: 4 SILVER-7 AMB Questionnaire SILVER-7 Date SILVER - 7 assessed: 06/04/24 Feeling nervous, anxious, or on edge: 0 = Not at all Not being able to stop or control worryin = Not at all Worrying too much about different things: 0 = Not at all Trouble relaxin = Not at all Being so restless that it is hard to sit still: 0 = Not at all Becoming easily annoyed or irritable: 1 = Several days Feeling afraid as if something awful might happen: 0 = Not at all Total SILVER-7 score (0-4 normal; 5-9 mild; 10-14 moderate; 15-21 severe): 1 Source: Developed by Drs. Collins Saldaña, Marya Ascencio, Rudy Dowd and colleagues, with an educational xiemna from [employer]. Review of Systems Const All systems reviewed & are unremarkable except as noted in HPI and below Reports no additional complaints Eyes Reports no additional complaints ENT Reports no additional complaints Card Reports no additional complaints Resp Reports no additional complaints GI Reports no additional complaints Reports no additional complaints Physical exam (Primary Care) Vital Signs: Last Vital Signs Pulse 55 06/04/24 08:09 BP 138/90 H 06/04/24 08:09 Pulse Ox 97 06/04/24 08:09 BMI result Body Mass Index 34.6 Tobacco/Smoking Status: Tobacco use Status Tobacco use date assessed 06/04/24 06/04/24 08:11 Patient Tobacco Use Status Never used Tobacco 06/04/24 08:11 e-Cigarette/Vaping Use Never Used 06/04/24 08:11 PHQ-9: PHQ-9 Score PHQ-9: Total score 0 06/04/24 08:46 Depression Screening Interpretation: Negative Thrive Assessment: Date of Thrive Assessment Date Thrive assessed 06/04/24 06/04/24 08:11 Currently or been in a relationship where the following occur: No concerns reported Const General: no acute distress HENMT Ears: hearing grossly normal bilaterally Mouth: Normal oral and palatal mucosa present Eyes General: appearance normal, both eyes and all related structures Neck Neck: Yes no lymphadenopathy and Yes supple Resp Effort & Inspection: normal respiratory effort Auscultation: clear to auscultation bilaterally Cardio Rhythm: regular rhythm Heart sounds: S1 normal heart sound present and S2 normal heart sound present GI Inspection: Yes normal to inspection Palpation (GI): Soft to palpation Percussion: Yes normal to percussion Auscultation: normal bowel sounds Skin Other: Erythematous rash in inguinal area bilaterally Office Procedures Flu Questionnaire Does the patient have a severe egg allergy?: No Does the patient have severe life threatening allergies?: No Does the patient have a fever or illness today?: No Has the patient ever had Guillain-[place] Syndrome?: No Has the patient ever had any past reaction to a flu shot?: No Immunizations Fluarix Triv [id number] (PF) 45 mcg (15 mcg x 3)/0.5 mL IM syringe Performing Provider: Reshma Camarena MD Performing Location: [facility] [place] [facility] Administered by: DAVIDSON Ventura on 06/04/24 08:46 Dose Route Admin Location Dispensed Lot Number Expiration Date [facility] Collet Maker 0.5 mL IM Left Deltoid 0.5 mL [id number] 01/25/25 [id number] [employer] VIS Given Date VIS Provided VIS Publication Date 06/04/24 Single Vaccine 21 Eligibility Eligibility Date Funding Source Not [facility] Eligible 06/04/24 Private Coding Level of Care Code Est Pt Prev Care 40-64y(96264) Diagnoses Hx of colonoscopy Z98.890 Hyperlipemia E78.5 Annual physical exam Z00.00 Tinea corporis B35.4 Additional Codes PHQ-9 - 86662 - PHQ-9 Billing: Yes ([id number]) Assessment & Plan Assessment & Plan (1) Hx of colonoscopy: Comment: 09/20 negative, recheck 5 yrs, FHx polyps Code(s): Z98.890 - Other specified postprocedural states Category: Surgical Plan: up to date (2) Hyperlipemia: Comment: Diet controlled Code(s): E78.5 - Hyperlipidemia, unspecified Category: Medical Plan: Continue low-cholesterol diet increase physical activity weight loss discussed with the patient (3) Annual physical exam: Code(s): Z00.00 - Encounter for general adult medical examination without abnormal findings Category: Medical Plan: Well-balanced diet regular physical activity discussed with the patient (4) Tinea corporis: Code(s): B35.4 - Tinea corporis Category: Medical Plan: Local skin care discussed with the patient nystatin powder will be tried Orders: Orders Influenza [id number] Immunization Today Z23 - Encounter for immunization Complete Blood Count Auto Diff 1 Year E78.5 - Hyperlipidemia, unspecified, R73.9 - Hyperglycemia, unspecified, Z00.00 - Encounter for general adult medical examination without abnormal findings Hemoglobin A1c 1 Year E78.5 - Hyperlipidemia, unspecified, R73.9 - Hyperglycemia, unspecified, Z00.00 - Encounter for general adult medical examination without abnormal findings Comprehensive [place]. Panel Fast 1 Year E78.5 - Hyperlipidemia, unspecified, R73.9 - Hyperglycemia, unspecified, Z00.00 - Encounter for general adult medical examination without abnormal findings Lipid Panel 1 Year E78.5 - Hyperlipidemia, unspecified, R73.9 - Hyperglycemia, unspecified, Z00.00 - Encounter for general adult medical examination without abnormal findings PSA,Total (Free>4and<10) 1 Year E78.5 - Hyperlipidemia, unspecified, R73.9 - Hyperglycemia, unspecified, Z00.00 - Encounter for general adult medical examination without abnormal findings UA w Microscopic 1 Year E78.5 - Hyperlipidemia, unspecified, R73.9 - Hyperglycemia, unspecified, Z00.00 - Encounter for general adult medical examination without abnormal findings Medications: New nystatin 1 appl topical BID 60 grams 1RF nystatin 1 appl topical BID 60 grams 1RF Discontinued ketoconazole 2% Discontinued Reason: Doctor's Order 1 appl topical DAILY 60 grams 2RF
== END 2024-06-04 08:48 | disposition home or self-care (01) ==
LOC: HO.HMCC 07:49
PROVIDERS: PCP Internal Medicine; Visit Provider Internal Medicine
DX: Z98.890 Other specified postprocedural states (principal); E78.5 Hyperlipidemia, unspecified; Z00.00 Encounter for general adult medical examination without abnormal findings; B35.4 Tinea corporis; Z23 Encounter for immunization

== ENCOUNTER → 2024-06-04 07:48 | Outpatient (BNVA) | payer OTHER, SELFPAY | PROVIDERS: PCP Internal Medicine; Visit Provider Internal Medicine | DX: Z00.00 Encounter for general adult medical examination without abnormal findings (principal); E78.5 Hyperlipidemia, unspecified; B35.4 Tinea corporis; Z23 Encounter for immunization | CPT/HCPCS: 90471; 90656; 96127 ==

== ENCOUNTER 2025-01-19 12:56 | Outpatient (AMB) | payer OTHER, SELFPAY ==
[2025-01-19 12:59] VITALS: BP 124/80; PULSE 64; RESP 18; TEMP 36.7; O2SAT 97; BMI 35.0
--- NOTE | 2025-01-19 12:59 | A.OFFPC_ITS ---
Vital Signs 01/19/25 12:59 Height 6 ft 3 in Weight 280 lb BMI 35.0 BP 124/80 Blood Pressure Location Lt brachial Position Sitting Respiration 18 Pulse 64 Pulse Source Pulse Oximeter Temp 98.0 F Temp Source Oral Pulse Oximetry (%) 97 Oxygen Delivery Method Room Air Intake Visit Reasons: sleep issues Intake Note: Pt is here today for a sick visit. Pt c/o sleep issues. Pt states that his noticed that pt has been snoring. Allergies amoxicillin (Augmentin) Allergy (Unknown, Verified 01/19/25 13:07) hives clavulanic acid (Augmentin) Allergy (Unknown, Verified 01/19/25 13:07) hives oxycodone Allergy (Unknown, Verified 01/19/25 13:07) hives Medication List - Last Reconciled 01/19/25 by Reshma Camarena MD nystatin 1 appl topical BID Tobacco use date assessed: 01/19/25 Dental Screening Dental Screen Date: 01/19/25 Did you have a dental visit in the last 12 months?: Yes Did you have a dental problem in the last 6 months where you did not have access to dental care?: No Was dental information given to patient?: Patient has dentist HPI sleep issues HPI Details Patient presents complaining of his noticed him having apnea episodes and loud snoring. Patient reports feeling tired waking up in the morning. 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 1. Little interest or pleasure in doing things: not at all 2. Feeling down, depressed, or hopeless: not at all 3. Trouble falling or staying asleep, or sleeping too much: several days 4. Feeling tired or having little energy: several days 5. Poor appetite or overeating: not at all 6. Feeling bad about yourself - or that you are a failure or have let yourself or your family down: not at all 7. Trouble concentrating on things, such as reading the newspaper or watching television: not at all 8. Moving or speaking so slowly that other people could have noticed. Or the opposite - being so fidgety or restless that you have been moving around a lot more than usual: not at all 9. Thoughts that you would be better off or of hurting yourself in some way: not at all Total score: 2 Depression Screening Interpretation: Negative Depression Screening Done: Yes 73721 - PHQ-9 Billing: Yes Source: Developed by Drs. Collins Saldaña, Marya Ascencio, Rudy Dowd and colleagues, with an educational ximena from [employer]. Thrive Questionnaire Date Thrive assessed: 01/19/25 I am a: Patient What is your living situation today?: I have a steady place to live Within the past 12 months, did the food you bought not last and you didn't have the money to get more?: Never true Within the past 12 months, did you worry whether your food would run out before you got money to buy more?: Never true Do you have trouble paying for medicines?: No Do you have trouble getting transportation to medical appointments?: No Do you have trouble paying your heating and electricity bill?: No Do you have trouble taking care of your child, family member or friend?: No Do you have trouble with day-to-day activities such as bathing, preparing meals, shopping, managing finances, etc.?: No Are you currently unemployed and looking for a job?: No Are you interested in more education?: No Please select the resources that you would like help with: None Currently or been in a relationship where the following occur: No concerns reported THRIVE Score: 0 SILVER-7 AMB Questionnaire SILVER-7 Date SILVER - 7 assessed: 01/19/25 Feeling nervous, anxious, or on edge: 0 = Not at all Not being able to stop or control worryin = Not at all Worrying too much about different things: 0 = Not at all Trouble relaxin = Not at all Being so restless that it is hard to sit still: 0 = Not at all Becoming easily annoyed or irritable: 0 = Not at all Feeling afraid as if something awful might happen: 0 = Not at all Total SILVER-7 score (0-4 normal; 5-9 mild; 10-14 moderate; 15-21 severe): 0 Source: Developed by Drs. Collins Saldaña, Marya Ascencio, Rudy Dowd and colleagues, with an educational ximena from [employer]. SILVER-7 Assessment Billing SILVER-7 Assessment Tool: SILVER-7 Assessment 90027 Review of Systems Const All systems reviewed & are unremarkable except as noted in HPI and below Eyes Reports no additional complaints ENT Reports no additional complaints Card Reports no additional complaints Resp Reports no additional complaints GI Reports no additional complaints Reports no additional complaints Physical exam (Primary Care) Vital Signs: Last Vital Signs Temp 98.0 F 01/19/25 12:59 Pulse 64 01/19/25 12:59 Resp 18 01/19/25 12:59 BP 124/80 01/19/25 12:59 Pulse Ox 97 01/19/25 12:59 Oxygen Delivery Method Room Air 01/19/25 12:59 BMI result Body Mass Index 35.0 Tobacco/Smoking Status: Tobacco use Status Tobacco use date assessed 01/19/25 01/19/25 13:02 Patient Tobacco Use Status Never used Tobacco 01/19/25 13:02 e-Cigarette/Vaping Use Never Used 01/19/25 13:02 PHQ-9: PHQ-9 Score PHQ-9: Total score 2 01/19/25 13:08 Depression Screening Interpretation: Negative Thrive Assessment: Date of Thrive Assessment Date Thrive assessed 01/19/25 01/19/25 13:08 Currently or been in a relationship where the following occur: No concerns reported Const General: no acute distress Neck Neck: Yes no lymphadenopathy and Yes supple Resp Effort & Inspection: normal respiratory effort Auscultation: clear to auscultation bilaterally Cardio Rhythm: regular rhythm Heart sounds: S1 normal heart sound present and S2 normal heart sound present Coding Level of Care Code Est Pt Level 3 (64337) Diagnoses Sleep apnea G47.30 Dysplastic nevi D23.9 Additional Codes SILVER-7 Assessment Billing - SILVER-7 Assessment Tool: SILVER-7 Assessment 77229 ([id number]) PHQ-9 - 68693 - PHQ-9 Billing: Yes ([id number]) Assessment & Plan Assessment & Plan (1) Sleep apnea: Code(s): G47.30 - Sleep apnea, unspecified Category: Medical Plan: Check sleep study (2) Dysplastic nevi: Comment: Established with [facility] Code(s): D23.9 - Other benign neoplasm of skin, unspecified Category: Medical Plan: f/u with dermatology Orders: Orders RT home sleep study Today G47.30 - Sleep apnea, unspecified Referrals Dermatology Referral D23.9 - Other benign neoplasm of skin, unspecified
== END 2025-01-19 15:08 | disposition home or self-care (01) ==
LOC: HO.HMCC 12:57
PROVIDERS: PCP Internal Medicine; Visit Provider Internal Medicine
DX: G47.30 Sleep apnea, unspecified (principal); D23.9 Other benign neoplasm of skin, unspecified

== ENCOUNTER → 2025-01-19 12:56 | Outpatient (BNVA) | payer OTHER, SELFPAY | PROVIDERS: PCP Internal Medicine; Visit Provider Internal Medicine | DX: G47.30 Sleep apnea, unspecified (principal); D23.9 Other benign neoplasm of skin, unspecified | CPT/HCPCS: 96127 ==

== ENCOUNTER → 2025-03-31 13:58 | Outpatient (REF) | payer OTHER, SELFPAY | LOC: HO.SL 13:58 | PROVIDERS: PCP Internal Medicine; Visit Provider Internal Medicine | DX: G47.33 Obstructive sleep apnea (adult) (pediatric) (principal); G47.30 Sleep apnea, unspecified; R40.0 Somnolence | CPT/HCPCS: 95806 ==

== ENCOUNTER → 2025-03-31 14:08 | Outpatient (BNV) | payer OTHER, SELFPAY | PROVIDERS: PCP Internal Medicine; Visit Provider Internal Medicine | DX: G47.33 Obstructive sleep apnea (adult) (pediatric) (principal) | CPT/HCPCS: 95806 ==

== ENCOUNTER 2025-05-03 15:21 | Outpatient (AMB) | payer OTHER, SELFPAY ==
[2025-05-03 15:30] VITALS: BP 122/82; PULSE 70; O2SAT 97; BMI 34.9
--- NOTE | 2025-05-03 15:30 | MHC.OFFVIS ---
Vital Signs 05/03/25 15:30 Height 6 ft 3 in Weight 279 lb 6 oz BMI 34.9 BP 122/82 Blood Pressure Location Rt brachial Position Sitting Pulse 70 Pulse Source Pulse Oximeter Pulse Oximetry (%) 97 Oxygen Delivery Method Room Air Intake Visit Reasons: 04/16LVM+LET INP-JUAN ANTONIO Intake Note: Patient presents [employer] JUAN ANTONIO. Having apnea episodes and loud snoring. Patient reports feeling tired waking up in the morning. Goes to bed at 10:30pm and wakes up at 5:30am. Patient lst sleep study was 03/2025([facility]). Accompanied by: Self / Same As Patient Allergies amoxicillin (Augmentin) Allergy (Unknown, Verified 05/03/25 15:35) hives clavulanic acid (Augmentin) Allergy (Unknown, Verified 05/03/25 15:35) hives oxycodone Allergy (Unknown, Verified 05/03/25 15:35) hives HPI Comments Details: 49 year old male with sleep difficulties is referred to us by his PCP for a review of his HST. 03/2025 HST c/w AHI 17.2 and oxygen nadirs to 84% with 40% of sleep is moderate. I reviewed his home sleep study with him today and will start him on auto PAP 5-20 cm of water. His heart rate was elevated to 228. He has anxiety and and stresses out due to work-related commitments. He snores loudly denies gasping for air and has multiple arousals during the night. He denies morning headaches. He denies bruxism, he denies clenching his jaw. He denies restless leg syndrome, he denies the urge to move his legs at night. His memory is stable. His mood is stable. His diet is stable. He notices he has gained some weight. He has a positive family history of factor five leiden though he is negative He has de Quervain tenosynovitis in the right thumb, which is improved with chronic corticosteroid treatments. He drinks alcohol socially 2-3 times on the weekends. He denies use of marijuana and denies smoking. He plays golf on the weekends and walks about 4 miles. 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 Cognitive needs: No Hearing needs: No Vision needs: Yes Physical Exam Vital Signs: Last Vital Signs Pulse 70 05/03/25 15:30 BP 122/82 05/03/25 15:30 Pulse Ox 97 05/03/25 15:30 Oxygen Delivery Method Room Air 05/03/25 15:30 BMI result Body Mass Index 34.9 Const General: cooperative, comfortable and no acute distress Nutritional Appearance: overweight Orientation/consciousness: patient oriented x3 HEENT Face and sinus: Yes face symmetric Teeth and gingiva: other ([place] score is 4) Eyes Pupils: Equal, round and reactive pupils present Neck Neck: Yes full ROM Resp Effort & Inspection: normal respiratory effort and able to speak in complete sentences Neuro General: patient oriented x3 and moves all extremities Cranial nerves: Yes Facial sensation intact/muscles of mastication intact, Yes Equal, round and reactive pupils present, Yes Normal accommodation reflex present, Yes Nystagmus not present, Yes Normal facial strength present, Yes Midline tongue present, Yes Ability to bilaterally rotate head present and Yes Ability to bilaterally elevate shoulders present Cognition (Neuro): normal cognition Gait exam (Neuro): Normal gait present Motor exam (neuro): 5/5 motor strength present throughout and Normal motor muscle tone present throughout Psych Appearance: grossly normal Speech and movement: Normal speech and movement present Affect: normal affect Thought process: Normal thought process present Thought content: Normal thought content present Results Reviewed Results Reviewed: 03/2025 HST c/w AHI 17.2 and oxygen nadirs to 84% with 40% of sleep is moderate. Assessment & Plan Assessment & Plan (1) Excessive daytime sleepiness: Code(s): G47.19 - Other hypersomnia Category: Medical (2) JUAN ANTONIO on CPAP: Code(s): G47.33 - Obstructive sleep apnea (adult) (pediatric) Category: Medical Plan JUAN ANTONIO start cpap therapy. HST reviewed with patient, will start him on auto PAP 5-20 cm of water, ensure compliance of more than 4 hours per night. Will monitor for BMI elevation. EDS Labs r/o deficiencies. Follow-up in 3 months Orders: Orders Complete Blood Count no Diff Today G47.19 - Other hypersomnia, G47.33 - Obstructive sleep apnea (adult) (pediatric) Ferritin Today G47.19 - Other hypersomnia, G47.33 - Obstructive sleep apnea (adult) (pediatric) Methylmalonic Acid Today G47.19 - Other hypersomnia, G47.33 - Obstructive sleep apnea (adult) (pediatric), G47.9 - Sleep disorder, unspecified, R53.83 - Other fatigue Vitamin B12 and Folate Today G47.19 - Other hypersomnia, G47.33 - Obstructive sleep apnea (adult) (pediatric) Comprehensive Met. Panel Today G47.19 - Other hypersomnia, G47.33 - Obstructive sleep apnea (adult) (pediatric) Hemoglobin A1c Today G47.19 - Other hypersomnia, G47.33 - Obstructive sleep apnea (adult) (pediatric) IRON PROFILE Today G47.19 - Other hypersomnia, G47.33 - Obstructive sleep apnea (adult) (pediatric), G47.9 - Sleep disorder, unspecified, R53.83 - Other fatigue Homocysteine Today G47.19 - Other hypersomnia, G47.33 - Obstructive sleep apnea (adult) (pediatric), G47.9 - Sleep disorder, unspecified, R53.83 - Other fatigue Vitamin D 25-OH Total Today G47.19 - Other hypersomnia, G47.33 - Obstructive sleep apnea (adult) (pediatric) TSH reflex Free T4 Today G47.19 - Other hypersomnia, G47.33 - Obstructive sleep apnea (adult) (pediatric) Patient Instructions: Please complete the following fasting labs to rule out deficiencies. CBC/CMP/ B12/ Vit D/ TSH/ Homocysteine and MMA/ Ferritin. Sleep Hygiene provided: set a scheduled bedtime and wake time to help regulate the circadian rhythm and balance the release of pituitary hormones. Sleep in a dark room, temperatures below 68 degrees, and no devices n bed. Limit caffeinated products 6 hours prior to bed, and limit fluids 2-4 hours prior to bed. Gentle night yoga, diffusing essential oils, and playing soft music can be relaxing. Coding Level of Care Code New Pt Level 4 (40464) Diagnoses Excessive daytime sleepiness G47.19 JUAN ANTONIO on CPAP G47.33
== END 2025-05-03 16:18 | disposition home or self-care (01) ==
LOC: HO.HSMS 15:22
PROVIDERS: PCP Internal Medicine; Visit Provider Physician Assistant Medical
DX: G47.19 Other hypersomnia (principal); G47.33 Obstructive sleep apnea (adult) (pediatric)
CPT/HCPCS: 99204

== ENCOUNTER 2025-05-07 06:08 | Outpatient (REF) | payer OTHER, SELFPAY ==
[2025-05-07 06:32] LABS: MANUAL DIFF FLAG NO
[2025-05-07 07:15] LABS: Hematocrit 49.0 % (42.0-52.0); Hemoglobin 16.6 g/dl (14.0-18.0); Imm Gran Abs Auto 0.03 X10*3/uL (0.00-0.03); Imm Gran Pct Auto 0.5 % (0.0-0.4); Lymphocytes Absolute Auto 1.4 X10*3/uL (1.2-4.9); Mean Corpuscular HGB Conc 33.9 g/dl (31.0-36.0); Mean Corpuscular Hemoglobin 30.4 pg (27.0-33.0); Mean Corpuscular Volume 89.7 fL (80.0-98.0); NRBC Abs Auto 0.000 X10*3/uL (0.0-0.012); NRBC Pct Auto 0.0 /100WBC (0.0-0.2); Platelet Count 262 X10*3/uL (160-400); Red Blood Count 5.46 X10*6/uL (4.60-5.80); White Blood Count 5.6 X10*3/uL (4.8-10.8)
[2025-05-07 07:23] LABS: Hemoglobin A1C 148.6016 umol/L; Total Hemoglobin (HGBA1C) 4128.3097 umol/L
[2025-05-07 07:32] LABS: Appearance Urine Clear; Glucose Urine UA Negative (Negative); PH 6.0 (5.0-9.0); Specific Gravity - Urine 1.020 (1.005-1.025)
[2025-05-07 07:48] LABS: Alanine Aminotransferase 32 U/L (0-40); Albumin Level 4.6 g/dL (3.5-5.0); Alkaline Phosphatase 107 U/L (39-117); Anion Gap 13 (12-20); Aspartate Amino Transferase 26 U/L (5-37); Blood Urea Nitrogen 17 mg/dL (9-16); Calcium 9.4 mg/dL (8.4-10.2); Carbon Dioxide 27 mmol/L (22-29); Chloride 106 mmol/L (96-108); Cholesterol 231 mg/dL (<200); Estimated Glomerular Filt Rate > 60; HDL Cholesterol 53 mg/dL (>40); Iron 70 mcg/dL (45-160); Percent Iron Saturation 27 % (15-50); Potassium 4.3 mmol/L (3.3-5.1); Sodium 142 mmol/L (135-145); Total Iron Binding Capacity 257 mcg/dL (228-428); Total Protein 7.6 g/dL (6.5-8.0); Triglycerides 109 mg/dL (<150); Unsaturated Iron Binding 187 ug/dL
[2025-05-07 08:00] LABS: PSA,Total (Free>4and<10) 0.55 ng/mL (0.00-4.00)
[2025-05-07 08:06] LABS: Ferritin 582 ng/mL (20-250)
[2025-05-07 08:14] LABS: Folate 11.4 ng/mL (> or = 4.0); Vitamin B12 413 pg/mL (200-900)
== END 2025-05-07 06:09 | disposition home or self-care (01) ==
LOC: HO.LAB 06:08
PROVIDERS: Absent Provider Physician Assistant Medical; PCP Internal Medicine; Visit Provider Internal Medicine
DX: Z00.00 Encounter for general adult medical examination without abnormal findings (principal); Z12.5 Encounter for screening for malignant neoplasm of prostate; Z13.21 Encounter for screening for nutritional disorder; G47.33 Obstructive sleep apnea (adult) (pediatric); G47.19 Other hypersomnia; R53.83 Other fatigue; G47.9 Sleep disorder, unspecified; E78.5 Hyperlipidemia, unspecified; R73.9 Hyperglycemia, unspecified
CPT/HCPCS: 36415; 80053; 80061; 81001; 82306; 82607; 82728; 82746; 83036; 83090; 83540; 83921; 84153; 84443; 85025

== ENCOUNTER → 2025-05-14 15:08 | Outpatient (REF) | payer OTHER, SELFPAY ==
--- NOTE | 2025-05-14 15:10 | HM_ITS ---
* Total monitoring time 6 days and 14 hours. * Underlying rhythm is sinus with an average rate of 68/Min. * Rare supraventricular ectopy. * Rare ventricular ectopy. * No significant pauses or high-grade AV blocks. * No patient markers or diary events. MTDD
== END ==
LOC: HO.CARD 15:08
PROVIDERS: Visit Provider Internal Medicine
DX: R00.0 Tachycardia, unspecified (principal)
CPT/HCPCS: 93242

== ENCOUNTER → 2025-05-14 15:10 | Outpatient (BNV) | payer OTHER, SELFPAY | PROVIDERS: Visit Provider Internal Medicine | DX: I49.3 Ventricular premature depolarization (principal); I47.10 Supraventricular tachycardia, unspecified | CPT/HCPCS: 93244 ==

== ENCOUNTER 2025-06-11 08:14 | Outpatient (AMB) | payer OTHER, SELFPAY ==
[2025-06-11 08:16] VITALS: BP 118/74; PULSE 76; RESP 16; TEMP 36.8; O2SAT 97; BMI 33.6
--- NOTE | 2025-06-11 08:16 | A.OFFPC_ITS ---
Vital Signs 06/11/25 08:16 Height 6 ft 3 in Weight 269 lb BMI 33.6 BP 118/74 Blood Pressure Location Lt brachial Position Sitting Respiration 16 Pulse 76 Pulse Source Pulse Oximeter Temp 98.2 F Temp Source Oral Pulse Oximetry (%) 97 Oxygen Delivery Method Room Air Intake Visit Reasons: Annual PE Intake Note: Pt is here today for PE. Allergies amoxicillin (Augmentin) Allergy (Unknown, Verified 06/11/25 08:16) hives clavulanic acid (Augmentin) Allergy (Unknown, Verified 06/11/25 08:16) hives oxycodone Allergy (Unknown, Verified 06/11/25 08:16) hives Medication List - Last Reconciled 06/11/25 by Reshma Camarena MD nystatin 1 appl topical BID Tobacco use date assessed: 06/11/25 Dental Screening Dental Screen Date: 01/19/25 HPI Annual PE HPI Details Patient presents for physical. He has been using CPAP for obstructive sleep apnea and reports getting restful sleep and heavy more energy during the day. 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 1. Little interest or pleasure in doing things: not at all 2. Feeling down, depressed, or hopeless: not at all 3. Trouble falling or staying asleep, or sleeping too much: several days 4. Feeling tired or having little energy: several days 5. Poor appetite or overeating: not at all 6. Feeling bad about yourself - or that you are a failure or have let yourself or your family down: not at all 7. Trouble concentrating on things, such as reading the newspaper or watching television: not at all 8. Moving or speaking so slowly that other people could have noticed. Or the opposite - being so fidgety or restless that you have been moving around a lot more than usual: not at all 9. Thoughts that you would be better off or of hurting yourself in some way: not at all Total score: 2 Depression Screening Interpretation: Negative Depression Screening Done: Yes Source: Developed by Drs. Collins Saldaña, Marya Ascencio, Rudy Dowd and colleagues, with an educational ximena from [employer]. Thrive Questionnaire Date Thrive assessed: 12/31/24 I am a: Patient What is your living situation today?: I have a steady place to live Within the past 12 months, did the food you bought not last and you didn't have the money to get more?: Never true Within the past 12 months, did you worry whether your food would run out before you got money to buy more?: Never true Do you have trouble paying for medicines?: No Do you have trouble getting transportation to medical appointments?: No Do you have trouble paying your heating and electricity bill?: No Do you have trouble taking care of your child, family member or friend?: No Do you have trouble with day-to-day activities such as bathing, preparing meals, shopping, managing finances, etc.?: No Are you currently unemployed and looking for a job?: No Are you interested in more education?: No Please select the resources that you would like help with: None Currently or been in a relationship where the following occur: No concerns reported THRIVE Score: 0 SILVER-7 AMB Questionnaire SILVER-7 Date SILVER - 7 assessed: 01/19/25 Feeling nervous, anxious, or on edge: 0 = Not at all Not being able to stop or control worryin = Not at all Worrying too much about different things: 0 = Not at all Trouble relaxin = Not at all Being so restless that it is hard to sit still: 0 = Not at all Becoming easily annoyed or irritable: 0 = Not at all Feeling afraid as if something awful might happen: 0 = Not at all Total SILVER-7 score (0-4 normal; 5-9 mild; 10-14 moderate; 15-21 severe): 0 Source: Developed by Drs. Collins Saldaña, Marya Ascencio, Rudy Dowd and colleagues, with an educational ximena from [employer]. Review of Systems Const All systems reviewed & are unremarkable except as noted in HPI and below Eyes Reports no additional complaints ENT Reports no additional complaints Card Reports no additional complaints Resp Reports no additional complaints GI Reports no additional complaints Reports no additional complaints Physical exam (Primary Care) Vital Signs: Last Vital Signs Temp 98.2 F 06/11/25 08:16 Pulse 76 06/11/25 08:16 Resp 16 06/11/25 08:16 BP 118/74 06/11/25 08:16 Pulse Ox 97 06/11/25 08:16 Oxygen Delivery Method Room Air 06/11/25 08:16 BMI result Body Mass Index 33.6 Tobacco/Smoking Status: Tobacco use Status Tobacco use date assessed 06/11/25 06/11/25 08:17 Patient Tobacco Use Status Never used Tobacco 06/11/25 08:17 e-Cigarette/Vaping Use Never Used 06/11/25 08:17 PHQ-9: PHQ-9 Score PHQ-9: Total score 2 06/11/25 08:59 Depression Screening Interpretation: Negative Thrive Assessment: Date of Thrive Assessment Date Thrive assessed 12/31/24 06/11/25 08:17 Currently or been in a relationship where the following occur: No concerns reported Const General: no acute distress HENMT Head: Yes normal to inspection Face and sinus: Yes normal facial exam Mouth: Normal oral and palatal mucosa present Eyes General: appearance normal, both eyes and all related structures Neck Neck: Yes no lymphadenopathy and Yes supple Resp Effort & Inspection: normal respiratory effort Auscultation: clear to auscultation bilaterally Cardio Rhythm: regular rhythm Heart sounds: S1 normal heart sound present and S2 normal heart sound present GI Inspection: Yes normal to inspection Palpation (GI): Soft to palpation Percussion: Yes normal to percussion Auscultation: normal bowel sounds Extrem General: Yes no clubbing, cyanosis or edema Office Procedures Flu Questionnaire Does the patient have a severe egg allergy?: No Does the patient have severe life threatening allergies?: No Does the patient have a fever or illness today?: No Has the patient ever had Guillain-[place] Syndrome?: No Has the patient ever had any past reaction to a flu shot?: No Immunizations Fluarix [id number] (PF) 45 mcg (15 mcg x 3)/0.5 mL IM syringe Performing Provider: Reshma Camarena MD Performing Location: [facility] Administered by: DAVIDSON Ventura on 06/11/25 08:58 Dose Route Admin Location Dispensed Lot Number Expiration Date NDC Active Directory Engineer 0.5 mL IM Left Deltoid 0.5 mL [id number] 01/25/26 [id number] [employer] VIS Given Date VIS Provided VIS Publication Date 06/11/25 Single Vaccine 24 Eligibility Eligibility Date Funding Source Not [facility] Eligible 06/11/25 Private Coding Level of Care Code Est Pt Prev Care 40-64y(77686) Diagnoses Hyperlipemia E78.5 Hx of colonoscopy Z98.890 Sleep apnea G47.30 Annual physical exam Z00.00 Overweight E66.3 Assessment & Plan Assessment & Plan (1) Hyperlipemia: Comment: Diet controlled Code(s): E78.5 - Hyperlipidemia, unspecified Category: Medical Plan: For hyperlipidemia despite low-cholesterol diet regular exercise pravastatin 20 mg daily will be started. Patient will follow-up in 2 months with a fasting labs before (2) Hx of colonoscopy: Comment: 09/20 negative, recheck 5 yrs, FHx polyps Code(s): Z98.890 - Other specified postprocedural states Category: Surgical Plan: Up-to-date with colon cancer screen (3) Sleep apnea: Comment: mod -severe JUAN ANTONIO, 03/2025, established with sleep medicine Code(s): G47.30 - Sleep apnea, unspecified Category: Medical Plan: Continue current treatment and follow-up with sleep medicine (4) Annual physical exam: Code(s): Z00.00 - Encounter for general adult medical examination without abnormal findings Category: Medical Plan: Well-balanced diet regular physical activity weight loss discussed with the patient (5) Overweight: Comment: BMI 33.6 05/2025 Code(s): E66.3 - Overweight Category: Medical Plan: DECREASING CALORIC INTAKE INCREASING PHYSICAL ACTIVITY AND WEIGHT LOSS DISCUSSED WITH THE PATIENT Orders: Orders Comprehensive [place]. Panel Fast 2 Months E78.5 - Hyperlipidemia, unspecified Lipid Panel 2 Months E78.5 - Hyperlipidemia, unspecified Influenza [id number] Immunization Today Z23 - Encounter for immunization Medications: New pravastatin 20 mg PO BEDTIME 90 tabs 0RF
== END 2025-06-11 08:52 | disposition home or self-care (01) ==
LOC: HO.HMCC 08:15
PROVIDERS: PCP Internal Medicine; Visit Provider Internal Medicine
DX: Z00.00 Encounter for general adult medical examination without abnormal findings (principal); E78.5 Hyperlipidemia, unspecified; Z98.890 Other specified postprocedural states; G47.30 Sleep apnea, unspecified; E66.3 Overweight; Z23 Encounter for immunization

== ENCOUNTER → 2025-06-11 08:14 | Outpatient (BNVA) | payer OTHER, SELFPAY | PROVIDERS: PCP Internal Medicine; Visit Provider Internal Medicine | DX: Z00.00 Encounter for general adult medical examination without abnormal findings (principal); G47.33 Obstructive sleep apnea (adult) (pediatric); E78.5 Hyperlipidemia, unspecified; G47.30 Sleep apnea, unspecified; E66.3 Overweight; Z23 Encounter for immunization; Z99.89 Dependence on other enabling machines and devices; Z98.890 Other specified postprocedural states; Z68.33 Body mass index [BMI] 33.0-33.9, adult | CPT/HCPCS: 90471; 90656; 96127 ==